=== PATIENT | male | born 1975 | race African-American/Black ===

== ENCOUNTER 2020-08-25 23:36 | Emergency (ER) | payer MEDICAID ==
[~2020-08-25] VITALS: Ht 185.4 cm; Wt 87.0 kg
[2020-08-26 00:03] VITALS: BP 148/80
== END 2020-08-26 04:38 | disposition home or self-care (01) ==
LOC: ER 23:36 → EDBD 23:36 → ER 08-26 04:38
DX: F16.10 Hallucinogen abuse, uncomplicated (principal); R45.6 Violent behavior
CPT/HCPCS: 71045; 99284